=== PATIENT | female | born 1990 | race Caucasian/White ===

== ENCOUNTER 2023-04-08 20:18 | Emergency (ER) | payer OTHER ==
[~2023-04-08] VITALS: Ht 167.6 cm; Wt 82.4 kg
[2023-04-08 20:33] VITALS: BP 142/82; PULSE 86; RESP 18; TEMP 97.3; O2SAT 98
[2023-04-08] MEDS ORDERED: sulfamethoxazole/trimethoprim DS (800/160mg) tablet PO ONE (22:50)
[2023-04-08] MEDS ORDERED: clindamycin 150mg capsule PO ONE (22:50)
[2023-04-08] MEDS ORDERED: ibuprofen tablet 400 MG TABLET PO ONE (22:50)
[2023-04-08] MEDS ORDERED: HYDR-3965 PO (22:58)
[2023-04-08] MEDS ORDERED: CLIN300C3 PO (22:58)
[2023-04-08] MEDS ORDERED: SULF1TAB49 PO (22:58)
== END 2023-04-08 23:20 | disposition home or self-care (01) ==
LOC: ER 20:19
DX: K61.0 Anal abscess (principal)
CPT/HCPCS: 99284